=== PATIENT | male | born 1945 | race Caucasian/White ===

== ENCOUNTER 2022-02-07 09:39 | Outpatient (CLI) | payer MEDICARE, BC | END 2022-02-07 09:40 | disposition home or self-care (01) | LOC: RAD 09:39 | PROVIDERS: ATTEND Internal Medicine Critical Care Medicine | DX: R06.00 Dyspnea, unspecified (principal); R91.8 Other nonspecific abnormal finding of lung field | CPT/HCPCS: 71046 ==

== ENCOUNTER 2022-08-10 09:51 | Outpatient (CLI) | payer MEDICARE, OTHER | END 2022-08-10 09:52 | disposition home or self-care (01) | LOC: RAD 09:51 | PROVIDERS: ATTEND Internal Medicine Critical Care Medicine | DX: R06.09 Other forms of dyspnea (principal); J98.4 Other disorders of lung | CPT/HCPCS: 71046 ==

== ENCOUNTER 2024-05-23 10:28 | Outpatient (CLI) | payer MEDICARE, BC | END 2024-05-23 10:29 | disposition home or self-care (01) | LOC: RAD 10:28 | PROVIDERS: ATTEND Internal Medicine Critical Care Medicine | DX: R06.00 Dyspnea, unspecified (principal); J98.4 Other disorders of lung | CPT/HCPCS: 71046 ==

== ENCOUNTER 2025-07-03 05:54 | Day surgery (SDC) | payer MEDICARE, BC ==
[2025-07-02 09:14] VITALS: BMI 31.8
[2025-07-03] MEDS ORDERED: Ondansetron PF 4 MG/2 ML Vial ONE (07:17)
[2025-07-03] MEDS ORDERED: PROPOFOL 20 ML ONE ×2 (07:17)
[2025-07-03] MEDS ORDERED: GLYCOPYRROLATE/PF 0.2 MG/ML VIAL ONE (07:17)
[2025-07-03] MEDS ORDERED: Lidocaine 1% PF 5 ML VIAL ONE (07:17)
[2025-07-03] MEDS ORDERED: PROPOFOL 40 ML ONE ×2 (08:17→08:29)
[2025-07-03] MEDS ORDERED: PHENYLEPHRINE-NS 100 MCG/ML 10 ML SYRINGE ONE (08:30)
== END 2025-07-03 09:54 | disposition home or self-care (01) ==
LOC: SDC 05:54
PROVIDERS: ATTEND Internal Medicine
PROC: 0DB28ZX Excision of Middle Esophagus, Via Natural or Artificial Opening Endoscopic, Diagnostic (ICD-10-PCS; principal; 2025-07-03)
PROC: 0DB68ZX Excision of Stomach, Via Natural or Artificial Opening Endoscopic, Diagnostic (ICD-10-PCS; 2025-07-03)
PROC: 0DBK8ZZ Excision of Ascending Colon, Via Natural or Artificial Opening Endoscopic (ICD-10-PCS; 2025-07-03)
PROC: 0D798ZZ Dilation of Duodenum, Via Natural or Artificial Opening Endoscopic (ICD-10-PCS; 2025-07-03)
DX: Z12.11 Encounter for screening for malignant neoplasm of colon (principal); D12.2 Benign neoplasm of ascending colon; K64.8 Other hemorrhoids; K57.30 Diverticulosis of large intestine without perforation or abscess without bleeding; K22.10 Ulcer of esophagus without bleeding; J44.9 Chronic obstructive pulmonary disease, unspecified; Z98.49 Cataract extraction status, unspecified eye; Z86.0101 Personal history of adenomatous and serrated colon polyps; Z96.641 Presence of right artificial hip joint; Z87.891 Personal history of nicotine dependence; Z96.652 Presence of left artificial knee joint; Z90.89 Acquired absence of other organs; Z79.51 Long term (current) use of inhaled steroids
CPT/HCPCS: 43239; 43245; 45385; J1100; J2405; J2704; J3490; 88305; 88312; 88313; 88342; J7620

== ENCOUNTER 2025-07-20 14:38 | Outpatient (CLI) | payer MEDICARE, BC | END 2025-07-20 14:39 | disposition home or self-care (01) | LOC: RAD 14:38 | PROVIDERS: ATTEND Internal Medicine Critical Care Medicine | DX: R06.00 Dyspnea, unspecified (principal); R91.8 Other nonspecific abnormal finding of lung field; S22.32XK Fracture of one rib, left side, subsequent encounter for fracture with nonunion; J98.4 Other disorders of lung | CPT/HCPCS: 71046 ==